=== PATIENT | female | born 1980 | race Caucasian/White ===

== ENCOUNTER 2024-03-05 08:17 | Outpatient (REF) | payer OTHER, SELFPAY | END 2024-03-05 08:18 | disposition home or self-care (01) | LOC: HO.MAMMO 08:17 | PROVIDERS: PCP Family Medicine; Visit Provider Family Medicine | DX: Z12.31 Encounter for screening mammogram for malignant neoplasm of breast (principal) | CPT/HCPCS: 77063; 77067 ==

== ENCOUNTER → 2024-03-05 08:45 | Outpatient (BNV) | payer OTHER, SELFPAY | PROVIDERS: PCP Family Medicine; Visit Provider Internal Medicine | DX: Z12.31 Encounter for screening mammogram for malignant neoplasm of breast (principal) | CPT/HCPCS: 77063; 77067 ==

== ENCOUNTER 2024-03-11 06:43 | Outpatient (REF) | payer OTHER, SELFPAY | END 2024-03-11 06:44 | disposition home or self-care (01) | LOC: HO.NEURO 06:43 | PROVIDERS: PCP Family Medicine; Visit Provider Family Medicine | DX: R56.9 Unspecified convulsions (principal) | CPT/HCPCS: 95819 ==

== ENCOUNTER → 2024-10-04 05:46 | Outpatient (BNV) | payer OTHER, SELFPAY | PROVIDERS: Emergency Provider Emergency Medicine; Visit Provider Radiology Diagnostic Radiology | DX: M79.641 Pain in right hand (principal); W22.09XA Striking against other stationary object, initial encounter | CPT/HCPCS: 73110; 73130 ==

== ENCOUNTER 2024-10-04 06:27 | Emergency (ER) | payer OTHER, SELFPAY ==
--- NOTE | ~2024-10-04 | XR_ITS ---
EXAMINATION: XR HAND, RIGHT CLINICAL INFORMATION: right hand pain/punched wall COMPARISON: None available. TECHNIQUE: PA, lateral, and oblique views of the right hand. FINDINGS: Metacarpal bones are intact. Phalanges are intact with normal alignment. Asymmetric joint space narrowing involving distal interphalangeal joints of the digits. Carpal bones are intact with normal alignment. No metallic or radiopaque foreign body. No subcutaneous emphysema. XR/XR hand RT min 3V IMPRESSION: No acute fracture or dislocation. Osteoarthritis, mild. Electronically signed by: Reynaldo Gale MD 10/04/2024 07:58 AM EDT
--- NOTE | ~2024-10-04 | XR_ITS ---
EXAMINATION: XR WRIST, RIGHT CLINICAL INFORMATION: right hand pain/punched wall COMPARISON: None available. TECHNIQUE: PA, lateral, and oblique views of the right wrist. FINDINGS: The carpal bones are intact. There is normal alignment. Distal radius and ulna are intact. No metallic or radiopaque foreign body. No subcutaneous emphysema. XR/XR wrist RT min 3V IMPRESSION: No acute fracture or dislocation. Electronically signed by: Reynaldo Gale MD 10/04/2024 07:59 AM EDT
[2024-10-04 06:32] VITALS: BP 136/78; PULSE 98; RESP 18; TEMP 36.3; O2SAT 97; BMI 24.2
--- OUTSIDE RECORDS SUMMARY | 2024-10-04 07:29 | XMS_ITS | Encounter Summary ---
Author Organization 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 Not on alecia e 06/13/2022 Are you concerned about learning? Not on file 06/13/2022 No 06/13/2022 No 06/13/2022 Digital Access Answer Date Recorded No 07/11/2022 No 07/11/2022 Reliable internet access at home? Not on file 07/11/2022 Device with a working camera? Not on file Intimate Partner Violence Answer Date R ecorded Are you denied basic needs s uch as food, clothing, or medical care? No 05/17/2024 In the past 12 months have y ou been in a relationship with a person who hurts, threatens, or tries to control you? No 05/17/2024 Are you denied basic needs s uch as food, clothing, or medical care? No 05/17/2024 In the past 12 months have y ou been in a relationship with a person who hurts, threatens, or tries to control you? No 05/17/2024 Comments No Sex and Gender Information Value Date Recorded Sex Assigned at Not on file Legal Sex Female 9:23 PM EDT Gender Identity Not on file Sexual Orientation Not on file documented as of this encounter Plan of Treatment Not on file documented as of this encounter Visit Diagnoses Not on filedocumented in this encounter Care Teams Solar Water Heater Installer Relationship Specialty Start Date End Date Italia Trivedi MD [address] [place] [id number] [email or web address] PCP - General Family Medicine 04/05/24 documented as of this encounter Additional Source Comments The information contained in this document represents components of the legal health record. It is not the complete legal health record.[facility]
--- NOTE | 2024-10-04 08:21 | ED.EXTPRO ---
HPI - Extremity Problem General Chief complaint: Extremity Injury, Upper Stated complaint: right hand injury Time Seen by Provider: 10/04/24 08:08 Source: patient Mode of arrival: ambulatory Limitations: no limitations History of Present Illness ED Provider: DR. Barlow HPI Narrative: This is a 43-year-old female left hand dominant came in for evaluation of right hand/wrist pain after punched a door frame when she got upset when she learned that her son closed her checking account. Patient denies SI, HI, or hallucination. No other injuries. Related Data Allergies Allergy/AdvReac Type Severity Reaction Status Date / Time codeine Allergy Unknown vomiting Verified 10/04/24 06:33 penicillin V Allergy Unknown vomiting Verified 10/04/24 06:33 Review of Systems Review of Systems: All other systems are reviewed and are negative Constitutional: Reports as per HPI and Reports no additional constitutional complaints Eyes: Reports as per HPI and Reports no additional eye complaints Reports system reviewed and no additional complaints, except as documented Cardiovascular: Reports as per HPI and Reports no additional cardiovascular complaints Respiratory: Reports as per HPI and Reports no additional respiratory complaints Gastrointestinal: Reports as per HPI and Reports no additional gastrointestinal complaints Genitourinary: Reports no additional female genitourinary complaints Musculoskeletal: Reports no additional musculoskeletal complaints Skin/Breast: Reports system reviewed and no additional complaints, except as docu Psychiatric: Reports no additional psychiatric complaints Endocrine: Reports no additional endocrine complaints Hematologic/Lymphatic: Reports no additional hematologic/lymphatic complaints Allergic/Immunologic: Reports no additional allergic/immunologic complaints Reports system reviewed and no additional complaints, except as documented and Reports Abnormal speech present COUNT INCLUDES [facility] Social History Social History Advance Directives: No Advance Directives Information Provided: No Do you have a plan to hurt others: No Plan Physical Exam Vital Signs: Vital Signs: Last Vital Signs Temp 97.4 F 10/04/24 06:32 Pulse 98 10/04/24 06:32 Resp 18 10/04/24 06:32 BP 136/78 10/04/24 06:32 Pulse Ox 97 10/04/24 06:32 O2 Del Method Room Air 10/04/24 06:32 BMI result Body Mass Index 24.2 Vital signs have been reviewed and appear to be correct. Blood pressure elevated. Heart rate normal. Respiratory rate normal. Temperature normal. Oxygen saturation normal. Appearance: Alert. Oriented X3. No acute distress. Head: Normal external exam. Normocephalic. Atraumatic. No Sena signs noted. No raccoon eyes noted Eyes: PERRLA. EOMI. Conjunctiva and sclera normal. Eyelids normal. ENT: TM's Normal. Pharynx normal. Uvula midline. Moist mucous membranes. No trismus noted. No drooling noted. No muffled voice noted. Neck: Normal inspection. Neck supple. FROM. No adenopathy. Thyroid Normal. No meningeal signs. No neck mass noted. CVS: Normal heart rate and rhythm. Heart sound normal. No murmurs noted. Pulses normal throughout. Respiratory: No respiratory distress. Painless inspiration. Breath sounds normal. No wheezes/rales/rhonchi noted. Chest nontender. No accessory muscle usage noted or decreased air movement noted. Abdomen: Soft and nontender. Bowel sounds normal in all 4 quadrants. No distention noted. No organomegaly noted. No visible injury noted. Back: No CVA tenderness. Full range of motion noted. Skin: Skin warm and dry. Normal skin color. Normal skin turgor. No rashes/lesions/lacerations noted. Extremities: Right hand exam: Mild swelling, tenderness over the 5th metacarpal bone, no deformity, no step-off, neurovascularly intact. Strong right radial pulse intact, cap refill less than 2 seconds. Neuro: Oriented X 3. Cranial nerve exam: II-XII are grossly intact No motor deficit. No sensory deficit. Reflexes normal. Course Reevaluation(s) Reevaluation #1: Right hand contusion after punching a wall, right hand/wrist x-ray are unremarkable for acute fracture, instructed to take NSAIDs and apply ice Time: 08:26 Medical Decision Making Differential Diagnosis Differential Diagnoses: The differential diagnosis associated with the presentation includes (Right hand contusion, right hand fracture, neurovascular compromise) Admission/Observation Consideration of admission/observation: Escalation of care including admission/observation considered Independent Interpretation I performed an independent interpretation of an: Plain X-Ray (Right hand/right wrist x-rays: No acute fracture dislocation) Radiology Impression Discussion of test interpretation with radiology: I have reviewed the radiologist's reading. Discharge Plan Discharge Clinical Impression: Contusion of hand, right Patient Disposition: Home, Self-Care Instructions: Contusion in Adults (ED) Interventions: LWBS Worksheet Last Done: 10/04/24 08:23 Print Language: Tamazight
--- NOTE | 2024-10-04 08:34 | PC.NURSE ---
Pt left prior to receiving discharge instructions. Ambulatory with a steady gait.
== END 2024-10-04 08:34 | disposition home or self-care (01) ==
PROVIDERS: Emergency Provider Emergency Medicine
DX: S60.221A Contusion of right hand, initial encounter (principal); W22.09XA Striking against other stationary object, initial encounter; Y93.89 Activity, other specified; Y92.9 Unspecified place or not applicable; Y99.9 Unspecified external cause status; M25.531 Pain in right wrist
CPT/HCPCS: 73110; 73130; 99281; 99283